=== PATIENT | female | born 1985 | race Caucasian/White ===

== ENCOUNTER 2018-01-31 10:02 | Emergency (ER) | payer SELFPAY ==
[~2018-01-31] VITALS: Ht 157.5 cm; Wt 52.3 kg
[2018-01-31 10:26] VITALS: Ht 157.5 cm; Wt 52.3 kg
[2018-01-31 10:49] LABS: BASOPHILS 0.3 % (0-2); EOSINOPHILS 0.8 % (0-7); HEMOGLOBIN 13.6 g/dL (12-16); IMMATURE GRANULOCYTES 0.2 % (0-5); LYMPHOCYTES 32.1 % (15-50); MCH 30.6 pg (26.0-34.0); MCV 90.1 fL (80.0-100.0); MEAN PLATELET VOLUME 11.2 fL (7.4-10.4); MONOCYTES 10.5 % (2-11); NEUTROPHILS 56.1 % (40-80); PLATELET COUNT 250 10x3/uL (130-400); RBC 4.44 10x6/uL (4.00-5.40); RDW 13.3 % (11.5-14.5); WBC 8.6 10x3/uL (4.8-10.8)
[2018-01-31 11:08] LABS: ALKALINE PHOSPHATASE 72 U/L (46-116); ALT (SGPT) 25 U/L (10-68); BILIRUBIN - TOTAL 0.18 mg/dL (0.2-1.3); CALC OSMOLALITY 283 mosm/kg (275-300); CALCIUM 8.9 mg/dL (8.5-10.1); CARBON DIOXIDE 25.7 mmol/L (21.0-32.0); CHLORIDE - SERUM 107 mmol/L (98-107); CREATININE - SERUM 0.7 mg/dL (0.6-1.3); GLUCOSE 86 mg/dL (74-106); POTASSIUM - SERUM 3.8 mmol/L (3.5-5.1); PROTEIN - SERUM 7.3 g/dL (6.4-8.2); SODIUM 143 mmol/L (136-145); UREA NITROGEN 12 mg/dL (7-18); eGFR NON AFRICAN AMERICAN > 90 mL/min (90-120)
[2018-01-31 11:16] LABS: AMYLASE - SERUM 27 U/L (25-115); LIPASE 73 U/L (73-393); TROPONIN-I < 0.017 ng/mL (0.000-0.060)
[2018-01-31 13:36] LABS: APPEARANCE CLOUDY (CLEAR); BILIRUBIN NEGATIVE (NEGATIVE); COLOR YELLOW (YELLOW); GLUCOSE NEGATIVE (NEGATIVE); KETONE NEGATIVE (NEGATIVE); NITRITE NEGATIVE (NEGATIVE); PROTEIN NEGATIVE (NEGATIVE); SPECIFIC GRAVITY 1.025 (1.005-1.020); UROBILINOGEN NORMAL (NORMAL); WHITE CELLS - URINE 0-5 /hpf (0-5)
[2018-01-31 13:37] LABS: BACTERIA MODERATE /hpf (NONE SEEN); MUCUS <1+ /lpf (NONE SEEN)
[2018-01-31 14:45] LABS: UDS - AMPHET POSITIVE QUAL (NEGATIVE); UDS - BARB NEGATIVE QUAL (NEGATIVE); UDS - BENZO NEGATIVE QUAL (NEGATIVE); UDS - COCAINE NEGATIVE QUAL (NEGATIVE); UDS - OPIATE NEGATIVE QUAL (NEGATIVE); UDS - PCP NEGATIVE QUAL (NEGATIVE); UDS - THC POSITIVE QUAL (NEGATIVE)
[2018-01-31 15:19] LABS: HCG URINE NEGATIVE (NEGATIVE)
[2018-01-31] MEDS ORDERED: OMNICEF300 MG PO (17:04)
[2018-01-31 17:15] VITALS: BP 164/100
== END 2018-01-31 17:15 | disposition home or self-care (01) ==
LOC: D.ER 10:02
PROVIDERS: Family Medicine
DX: N39.0 Urinary tract infection, site not specified (principal); F15.10 Other stimulant abuse, uncomplicated; R11.2 Nausea with vomiting, unspecified; R19.7 Diarrhea, unspecified; R30.0 Dysuria; R35.0 Frequency of micturition

== ENCOUNTER 2020-07-15 05:08 | Day surgery (SDC) | payer BC ==
[~2020-07-15] VITALS: Ht 157.5 cm; Wt 70.3 kg
[~2020-07-15 05:08] MED LIST: CELEXA20 MG PO; IBUPROFEN800 MG PO; OMNICEF300 MG PO; TRILEPTAL300 MG PO; XANAX1 MG PO
[2020-07-15 05:49] LABS: BASOPHILS 0.3 % (0-2); EOSINOPHILS 2.2 % (0-7); HEMATOCRIT 40.8 % (36.0-48.0); HEMOGLOBIN 13.9 g/dL (12-16); IMMATURE GRANULOCYTES 0.1 % (0-5); LYMPHOCYTE ABS# 3.78 10x3/uL (1.18-3.74); LYMPHOCYTES 48.7 % (15-50); MCH 30.2 pg (26.0-34.0); MCHC 34.1 g/dL (31.0-37.0); MCV 88.7 fL (80.0-100.0); MEAN PLATELET VOLUME 11.4 fL (7.4-10.4); MONOCYTES 10.6 % (2-11); NEUTROPHIL ABS# 2.96 10x3/uL (1.56-6.13); NEUTROPHILS 38.1 % (40-80); PLATELET COUNT 300 10x3/uL (130-400); RDW 13.6 % (11.5-14.5); WBC 7.8 10x3/uL (4.8-10.8)
[2020-07-15 05:54] LABS: CALC OSMOLALITY 280 mosm/kg (275-300); CALCIUM 8.8 mg/dL (8.5-10.1); CARBON DIOXIDE 27.7 mmol/L (21.0-32.0); CHLORIDE - SERUM 105 mmol/L (98-107); CREATININE - SERUM 0.9 mg/dL (0.6-1.3); GLUCOSE 91 mg/dL (74-106); POTASSIUM - SERUM 3.8 mmol/L (3.5-5.1); SODIUM 141 mmol/L (136-145); UREA NITROGEN 12 mg/dL (7-18); eGFR NON AFRICAN AMERICAN 76 mL/min (90-120)
[2020-07-15 05:57] VITALS: BP 102/63; Ht 157.5 cm; Wt 70.3 kg
[2020-07-15] MEDS ORDERED: REMERON15 MG (06:27)
--- NOTE | 2020-07-15 08:39 | NUR ---
HAVE DISCUSSED WITH ANESTHESIA PATIENT REPORTING PAIN 10/10. SHE HAS HAD THE MAX DOSE OF DILAUDID FOR PACU; SEND PATIENT TO [facility] FOR PO MEDICATION. SHE HAS BEEN INTERMITTENTLY SLEEPING IN RECOVERY WITH VITAL SIGNS STABLE.
--- NOTE | 2020-07-15 09:02 | NUR ---
0845 ICE PACK PROVIDED.
== END 2020-07-15 10:15 | disposition home or self-care (01) ==
LOC: D.OPS 05:08
PROVIDERS: Anesthesiology; ATTEND Obstetrics & Gynecology Maternal & Fetal Medicine
DX: T81.31XA Disruption of external operation (surgical) wound, not elsewhere classified, initial encounter (principal); N90.60 Unspecified hypertrophy of vulva; N94.10 Unspecified dyspareunia; F17.200 Nicotine dependence, unspecified, uncomplicated

== ENCOUNTER 2020-07-29 06:42 | Day surgery (SDC) | payer BC ==
[~2020-07-29] VITALS: Ht 157.5 cm; Wt 70.3 kg
[~2020-07-29 06:42] MED LIST changes: +REMERON15 MG
[2020-07-29 07:26] VITALS: BP 118/79; Ht 157.5 cm; Wt 70.3 kg
--- NOTE | 2020-07-29 10:26 | NUR ---
PT ARRIVED IN OR #1 WITH DENTURE X 1- TOP PLATE. PT REMOVED AND PLACED IN LABELED CONTAINER FOR TRANSPORT WITH PATIENT TO PACU. NOTED, DOMITILA CHINCHILLA
--- NOTE | 2020-07-29 12:38 | NUR ---
1210 MEDICATED FOR PAIN. 1215 IV REMOVED AND PRESSURE HELD. INSTRUCTIONS AND RX GIVEN
== END 2020-07-29 12:36 | disposition home or self-care (01) ==
LOC: D.OPS 06:42
PROVIDERS: ATTEND Obstetrics & Gynecology Maternal & Fetal Medicine
DX: T81.31XA Disruption of external operation (surgical) wound, not elsewhere classified, initial encounter (principal); N90.60 Unspecified hypertrophy of vulva

== ENCOUNTER 2020-08-31 09:32 | Day surgery (SDC) | payer BC ==
[~2020-08-31] VITALS: Ht 157.5 cm; Wt 72.6 kg
[2020-08-31 10:16] LABS: HEMATOCRIT 38.7 % (36.0-48.0); HEMOGLOBIN 13.3 g/dL (12-16); MCH 30.1 pg (26.0-34.0); MCHC 34.3 g/dL (31.0-37.0); MCV 87.7 fL (80.0-100.0); MEAN PLATELET VOLUME 9.8 fL (7.4-10.4); RBC 4.42 10x6/uL (4.00-5.40); RDW 13.2 % (11.5-14.5); WBC 5.8 10x3/uL (4.8-10.8)
[2020-08-31 10:28] LABS: HCG SERUM NEGATIVE (NEGATIVE)
[2020-08-31 11:19] VITALS: BP 149/64; Ht 157.5 cm; Wt 72.6 kg
--- NOTE | 2020-08-31 13:48 | NUR ---
PT SPO2 READS 83. NOT A GOOD WAVE FORM DOESNT MATCH HEART RATE. INSTRUCTED PT TO STAY STILL AND TAKE DEEP BREATHS. PT STATES IT HURTS SO BAD AFTER 2 OF DILUADED SHE IS HOLDING HER BREATH SO IT DOESNT HURT MUCH. SHE IS LAYING IN BED WITH EYES CLOSED NO GRIMACING. CODING AND REIMBURSEMENT SPECIALIST VITAL SIGN ELEVATION. NO GUARDING. ARMS RELAXED AT SIDE OF BODY ON TOP OF BLANKETS. PT STATES SHE IS 8.5/10 ON THE PAIN SCALE. STATES "DUDE IM HURTING SO BAD RIGHT NOW"
--- NOTE | 2020-08-31 14:05 | NUR ---
PT LAYING COMFORTABLE. NO GRIMACING NO GUARDING. NO ELEVATION IN VS. PT IS STATING SHE IS HURTING INCREDIBLY BAD. SPOKE WITH ANESTHESIA. NO MORE MEDS AT THIS TIME.
== END 2020-08-31 15:20 | disposition home or self-care (01) ==
LOC: D.OPS 09:32
PROVIDERS: Anesthesiology; ATTEND Obstetrics & Gynecology Maternal & Fetal Medicine
DX: N81.10 Cystocele, unspecified (principal); R10.2 Pelvic and perineal pain; R33.9 Retention of urine, unspecified